=== PATIENT | female | born 1975 | race Caucasian/White ===

== ENCOUNTER 2017-04-09 12:04 | Emergency (ER) | payer OTHER ==
[2017-04-09 13:06] LABS: PLATELET COUNT 375 x10^3mcL (130-400); RED CELL DISTRIBUTION WIDTH 12.1 % (11.5-14.5)
[2017-04-09 13:07] LABS: BASOPHIL % 3.2 % (0-2)
[2017-04-09 13:24] LABS: CALCIUM 9.3 mg/dL (8.5-10.1); CARBON DIOXIDE 24.4 mmol/L (21-32); CHLORIDE SERUM 97 mmol/L (98-107); CREATININE SERUM 0.7 mg/dL (0.6-1.0); GFR1 > 60 mL/min; GLUCOSE SERUM 308 mg/dL (74-106); POTASSIUM SERUM 4.3 mmol/L (3.5-5.1); SODIUM SERUM 134 mmol/L (136-145)
[2017-04-09 13:29] LABS: ALBUMIN 3.7 g/dL (3.4-5.0); ALKALINE PHOSPHATASE 98 U/L (46-116); ALT/SGPT 27 U/L (14-59); AST/SGOT 12 U/L (15-37); BILIRUBIN TOTAL 0.3 mg/dL (0.20-1.00)
[2017-04-09 13:31] LABS: TOTAL PROTEIN, SERUM 8.4 g/dL (6.4-8.2)
[2017-04-09 13:42] VITALS: BP 154/98
== END 2017-04-09 15:13 | disposition home or self-care (01) ==
LOC: ED 12:04
PROVIDERS: Emergency Medicine
DX: B34.9 Viral infection, unspecified (principal); M43.6 Torticollis; I10 Essential (primary) hypertension; E11.9 Type 2 diabetes mellitus without complications
CPT/HCPCS: 36415; J1885; J7613; J7644; Q0092

== ENCOUNTER 2018-11-07 06:54 | Emergency (ER) | payer OTHER ==
[~2018-11-07] VITALS: Ht 175.3 cm; Wt 110.7 kg
[2018-11-07 06:59] VITALS: Ht 175.3 cm; Wt 110.7 kg
[2018-11-07 08:40] LABS: BASOPHIL % 0.3 % (0-2); PLATELET COUNT 328 x10^3mcL (130-400); RED CELL DISTRIBUTION WIDTH 12.5 % (11.5-14.5)
[2018-11-07 08:48] LABS: CALCIUM 8.8 mg/dL (8.5-10.1); CARBON DIOXIDE 28.1 mmol/L (21-32); CHLORIDE SERUM 102 mmol/L (98-107); CREATININE SERUM 0.6 mg/dL (0.6-1.0); GFR1 > 60 mL/min; GLUCOSE SERUM 294 mg/dL (74-106); POTASSIUM SERUM 4.2 mmol/L (3.5-5.1); SODIUM SERUM 137 mmol/L (136-145)
[2018-11-07 08:53] LABS: ALBUMIN 3.2 g/dL (3.4-5.0); ALKALINE PHOSPHATASE 111 U/L (46-116); ALT/SGPT 23 U/L (14-59); AST/SGOT 7 U/L (15-37); BILIRUBIN TOTAL 0.51 mg/dL (0.20-1.00); CHOLESTEROL 206 mg/dL (<200); HDL CHOLESTEROL 35 mg/dL (40-60); TOTAL PROTEIN, SERUM 7.5 g/dL (6.4-8.2)
[2018-11-07 10:36] VITALS: BP 140/69
== END 2018-11-07 10:36 | disposition home or self-care (01) ==
LOC: ED 06:54
PROVIDERS: Emergency Medicine
DX: L02.415 Cutaneous abscess of right lower limb (principal); E11.65 Type 2 diabetes mellitus with hyperglycemia; I10 Essential (primary) hypertension; E66.9 Obesity, unspecified; Z68.36 Body mass index [BMI] 36.0-36.9, adult; Z98.890 Other specified postprocedural states
CPT/HCPCS: 82962; J1815; J2001; J7030

== ENCOUNTER 2018-11-10 09:13 | Emergency (ER) | payer OTHER ==
[~2018-11-10] VITALS: Ht 175.3 cm; Wt 115.2 kg
[2018-11-10 09:17] VITALS: Ht 175.3 cm; Wt 115.2 kg
[2018-11-10 10:12] VITALS: BP 141/89
== END 2018-11-10 10:12 | disposition home or self-care (01) ==
LOC: ED 09:13
DX: L02.415 Cutaneous abscess of right lower limb (principal); I10 Essential (primary) hypertension; E11.9 Type 2 diabetes mellitus without complications; Z48.01 Encounter for change or removal of surgical wound dressing